=== PATIENT | male | born 1995 | race Caucasian/White ===

== ENCOUNTER 2024-08-02 17:42 | Emergency (ER) | payer OTHER, SELFPAY ==
[2024-08-02 17:46] VITALS: BP 128/63; PULSE 78; RESP 18; TEMP 36.3; O2SAT 99; BMI 27.4
--- NOTE | 2024-08-02 18:07 | DI.RAD.S_ITS ---
PROCEDURE: XR HAND RT MIN 3V INDICATIONS: laceration dorsal R hand between 2nd 3rd mcp TECHNIQUE: 3 views of the hand(s) acquired. COMPARISON: None. FINDINGS: No acute fracture or dislocation. The joint spaces are preserved. No radiopaque foreign object in the field of view. IMPRESSION: No acute fracture or dislocation of the right hand. Dictated by: Umesh Mosqueda M.D. on 08/02/2024 at 19:25 Approved by: Umesh Mosqueda M.D. on 08/02/2024 at 19:26
--- NOTE | 2024-08-02 18:16 | ED.WOUNDLAC ---
HPI - Wound/Laceration General Chief Complaint: Wound/Laceration Stated Complaint: hand laceration Time Seen by Provider: 08/02/24 17:59 Source: patient Mode of arrival: Ambulatory History of Present Illness HPI narrative: Mr. Orlando Bean is a pleasant 29-year-old Bruneian-speaking male with no reported past medical history who presents to the emergency department for a laceration to the dorsal aspect of his right hand that occurred approximately 5:30 p.m. Right-hand dominant. Patient was standing on a work truck when he accidentally raised his right hand and sliced it on a sharp piece of metal that was on the truck. He continues to have active bleeding which stopped with direct pressure. Laceration is between his 2nd and 3rd knuckle on the right hand. He denies any other injuries, he still has range of motion of his fingers and no numbness or tingling. No medications prior to arrival. No blood thinners. Related Data Previous Rx's Medication Instructions Recorded cephalexin 500 mg capsule 500 mg PO QID 7 days #28 caps 08/02/24 Allergies Allergy/AdvReac Type Severity Reaction Status Date / Time No Known Drug Allergies Allergy Verified 08/02/24 18:33 Review of Systems Review of Systems ROS Unobtainable: All systems reviewed & are unremarkable except as noted in HPI and below Exam Narrative Exam Narrative: GENERAL: 29 year old patient appears stated age. Well-developed patient, in no acute distress. CARDIOVASCULAR: Regular rate and rhythm. Strong radial pulse. Brisk capillary refill on tips of right fingers. RESPIRATORY: ?Nonlabored respirations. ?Speaking in clear, full sentences. EXTREMITIES: Right hand: Patient has full range of motion of the right hand in his able to fully make a fist and extend all 5 fingers. NEURO: AOx3. ?Clear speech. ?Moves all 4 extremities appropriately. Sensation intact to light touch in the distribution of the median, ulnar, radial nerves bilaterally. SKIN: Right hand laceration: 3 cm laceration between the 2nd and 3rd MCP joints on the dorsal right hand. Bleeding controlled with direct pressure. Initial Vital Signs Initial Vital Signs: Vital Signs Temperature 97.4 F L 08/02/24 17:46 Pulse Rate 78 08/02/24 17:46 Respiratory Rate 18 08/02/24 17:46 Blood Pressure 128/63 08/02/24 17:46 Pulse Oximetry 99 08/02/24 17:46 Oxygen Delivery Method Room Air 08/02/24 17:46 Procedures Laceration Repair Laceration 1: Time of procedure: 19:00 Site: hand Side (If applicable): right Size (cm): 3 Description: linear Local Anesthetic: lidocaine 1% and with epi Amount of anesthesia used (mL): 5 Pre-repair: wound explored and irrigated extensively (Irrigated with diluted Betadine) Skin layer closed with: nylon Skin layer suture size: 4-0 Number of sutures: 7 Technique: simple, interrupted Course Orders Ordered: Discontinued Medications Acetaminophen (Acetaminophen 325 Mg Tablet) 975 mg PO NOW ONE Stop: 08/02/24 18:08 Last Admin: 08/02/24 18:30 Dose: 975 mg Documented By: NANCY Bacitracin (Bacitracin Oint 0.9 Gm Pckt) 1 applic TOP NOW ONE Stop: 08/02/24 18:10 Last Admin: 08/02/24 18:30 Dose: 1 applic Documented By: NANCY Cephalexin HCl (Cephalexin 250 Mg Capsule) 500 mg PO NOW ONE Stop: 08/02/24 19:30 Last Admin: 08/02/24 19:35 Dose: 500 mg Documented By: LYSSA Diphtheria/Tetanus/Acell Pertussis (Tet,Diph,Pertuss(Acell),Vac/Pf 0.5 Ml Syringe) 0.5 ml IM .ONCE ONE Stop: 08/02/24 18:06 Last Admin: 08/02/24 18:31 Dose: 0.5 ml Documented By: NANCY Ibuprofen (Ibuprofen 400 Mg Tablet) 400 mg PO NOW ONE Stop: 08/02/24 18:08 Last Admin: 08/02/24 18:30 Dose: 400 mg Documented By: NANCY Lidocaine/Epinephrine (Lidocaine 1% W/Epi 20ml) 5 ml INJ INTRA-OP ONE Stop: 08/02/24 18:08 Last Admin: 08/02/24 18:30 Dose: 5 ml Documented By: NANCY Consultations Consultation #1: Consulted orthopedic surgeon on-call Dr. Saeed. Discussed the patient's injury. He recommended irrigation with Betadine, laceration repair with nylon, antibiotics and follow up outpatient. We discussed that patient has full range of motion of his hand at this time however it is important for the patient to follow up to further evaluate for possible tendon injury. Time: 19:00 Vital Signs Vital signs: Vital Signs - 8 hr 08/02/24 17:46 08/02/24 19:33 Temperature 97.4 F L Pulse Rate 78 81 Respiratory Rate 18 18 Blood Pressure 128/63 128/59 L Pulse Oximetry 99 98 Oxygen Delivery Method Room Air Room Air MDM - Wound/Laceration Medical Records Attestation: I reviewed the patient's medical records. Imaging Data Right Hand X-Ray: Radiologist's Impression: PROCEDURE: XR HAND RT MIN 3V INDICATIONS: laceration dorsal R hand between 2nd 3rd mcp TECHNIQUE: 3 views of the hand(s) acquired. COMPARISON: None. FINDINGS: No acute fracture or dislocation. The joint spaces are preserved. No radiopaque foreign object in the field of view. IMPRESSION: No acute fracture or dislocation of the right hand. MDM Narrative Medical decision making narrative: 29-year-old Bruneian-speaking male with no reported past medical history who presents to the emergency department for a laceration to the dorsal aspect of his right hand that occurred approximately 5:30 p.m. Both hospital staff and patient's friend helped to translate, patient denied the need for hospital broker assistant ipad. Differential diagnosis includes but is not limited to laceration, tendon damage, joint damage, foreign body, infection, etc. On exam patient is in no acute distress, nontoxic appearing. Linear laceration on his dorsal right hand between the 2nd and 3rd MCPs that occurred just prior to arrival. Tdap was updated, x-ray was obtained which is negative for any acute abnormalities. Wound was anesthetized, extensively cleansed, repaired using 7 simple interrupted sutures. Patient tolerated the procedure very well. Antibiotic ointment was then applied to the wound with a nonadherent dressing and the patient's right hand was wrapped in an Bayron wrap for support. Discussed the case with the Orthopedics. Patient is appropriate for follow up with Orthopedics and PCP. Advised suture removal in 10-14 days. He was started on Keflex and 7 day prescription was sent to his pharmacy of choice. Recommended ibuprofen/Tylenol if needed for pain. Discussed signs and symptoms of infection to return immediately to the ER for. Patient verbalized understanding of all information and he is agreeable to the plan. He is stable for discharge home. L&I paperwork completed. Discharge Plan Departure Patient Disposition: Home Clinical Impression: Laceration of hand, right Qualifiers: Encounter type: initial encounter Foreign body presence: without foreign body Qualified Code(s): S61.411A - Laceration without foreign body of right hand, initial encounter Instructions: DI for Laceration Repair Activity Restrictions/Additional Instructions: Today you had a laceration to your right hand. We have placed 7 sutures. They need to be removed in 10-14 days. You may do this in your doctor's office, the [facility], or here if necessary. Please keep the dressing on your wound clean, dry, and intact for the next 12-24 hours. After this time, you may remove the dressing and gently clean the wound with soap and water, then pat dry. Keep the wound clean and covered with antibioitc ointment. Avoid soaking the wound in any water such as a bath, pool, or the ocean. If you develop any signs of wound infection such as increased redness, pus drainage, streaking redness, or fevers, please return to the ER immediately for evaluation. Once sutures are removed and the wound has healed, apply sunscreen daily to reduce the appearance of scars. We updated your tetanus shot today. You may call to schedule an appointment with [facility] at [phone] for further evaluation of your hand injury. You may also follow up with an orthopedic doctor closer to you. Please take Ibuprofen (Motrin/Advil) or Acetaminophen (Tylenol) for pain. These are available over the counter. You may take Ibuprofen 600 mg every 8 hours with food for pain. You may also take Acetaminophen 650 mg every 4-6 hours for pain. Do not exceed 3000 mg of Tylenol a day as this can cause liver damage. Do not drink alcohol with either of these medications. Please follow up with your primary care doctor within the next 2-3 days for ER follow-up. (If you do not have a PCP you can call [phone]. ?to schedule an appointment with an [facility] Primary Care Provider) IF YOU DEVELOP ANY NEW OR WORSENING SYMPTOMS, RETURN TO THE ER! Please read the attached instructions, they highlight more specific treatments and interventions for you at home. Thank you for letting me participate in your care, RYLAND Erazo tuviste vaughn laceraci?n en mano derecha. Hemos colocado 7 suturas. Deben eliminarse en 10 a 14 d?as. Puede hacer esto en el consultorio de cary m?dico, en la cl?apolonia sin angy previa o aqu? si es necesario. Mantenga el vendaje de la herida limpio, seco e intacto mack las pr?ximas 12 a 24 horas. Despu?s de jodee tiempo, puede quitarse el vendaje y limpiar suavemente la herida con agua y jab?n, luego secarla con palmaditas. Mantenga la herida limpia y cubierta con royce?ento antibi?agnieszka. Evite remojar la herida en agua, earl vaughn ba?era, vaughn piscina o el oc?ano. Si desarrolla alg?n signo de infecci?n de la herida, earl aumento del enrojecimiento, drenaje de pus, enrojecimiento veteado o fiebre, regrese a la gerardo de emergencias de inmediato para vaughn evaluaci?n. Vaughn vez que se retiren las suturas y la herida haya sanado, aplique protector solar diariamente para reducir la apariencia de las cicatrices. Actualizamos cary vacuna contra el t?tanos hoy. Prescriptions: New cephalexin 500 mg capsule 500 mg PO QID 7 Days Qty: 28 0RF Referrals: Miscellaneous,Doctor, MD [Primary Care Provider] - Stand Alone Forms: Patient Portal/API/Survey
[2024-08-02] MEDS: BACITRACIN OINT 0.9 GM PCKT 1 APPLIC TOP (18:30)
[2024-08-02] MEDS: ACETAMINOPHEN 325 MG TABLET 975 MG PO (18:30)
[2024-08-02] MEDS: LIDOCAINE 1% W/EPI 20ML 5 ML INJ (18:30)
[2024-08-02] MEDS: IBUPROFEN 400 MG TABLET PO (18:30)
[2024-08-02] MEDS: TET,DIPH,PERTUSS(ACELL),VAC/PF 0.5 ML SYRINGE IM (18:31)
[2024-08-02 19:33] VITALS: BP 128/59; PULSE 81; RESP 18; O2SAT 98
[2024-08-02] MEDS: cephALEXin 250 MG CAPSULE 500 MG PO (19:35)
== END 2024-08-02 19:42 | disposition home or self-care (01) ==
PROVIDERS: Emergency Provider Physician Assistant
DX: S61.411A Laceration without foreign body of right hand, initial encounter (principal); W26.8XXA Contact with other sharp object(s), not elsewhere classified, initial encounter; Z23 Encounter for immunization
CPT/HCPCS: 12002; 73130; 90471; 99283; 99284; 90715